=== PATIENT | female | born 1975 | race Caucasian/White ===

== ENCOUNTER 2017-03-10 11:15 | Emergency (ER) | payer SELFPAY ==
[~2017-03-10] VITALS: Ht 175.3 cm; Wt 53.5 kg
[2017-03-10 11:26] VITALS: BP 139/101
[2017-03-10 11:58] LABS: Urine RBC None Seen /hpf (0 - 4)
[2017-03-10 12:20] LABS: Basophils # (auto) 0 uL; Basophils % (auto) 0.8 % (0.0-2.0); CONDITION Y; Eosinophils # (auto) 0.1 uL; Eosinophils % (auto) 1.5 % (0.0-7.0); Hematocrit 37.9 % (36.0-46.0); Lymphocytes # (auto) 1.8 uL; Lymphocytes % (auto) 35.2 % (10.0-50.0); Mean Corpuscular Hemoglobin 34.5 pg (28.0-32.0); Mean Corpuscular Hgb Conc. 34.4 g/dL (32.0-36.0); Mean Corpuscular Volume 100.4 fL (80.0-100.0); Mean Platelet Volume 9.3 fL (7.4-10.4); Monocytes # (auto) 0.3 uL; Monocytes % (auto) 5.7 % (0.0-12.0); Neutrophils # (auto) 2.8 uL; Neutrophils % (auto) 56.8 % (37.0-80.0); Platelet Count (auto) 144 10^3/uL (140-450); Red Cell Distribution Width 13.6 % (11.6-16.0)
[2017-03-10 12:44] LABS: Albumin 4.3 g/dL (3.4-5.0); Bilirubin, Total 0.4 mg/dL (0.2-1.0); Calcium 8.5 mg/dL (8.5-10.1); Potassium 3.8 mmol/L (3.5-5.1); Total Protein 7.6 g/dL (6.4-8.2)
[2017-03-10 13:18] LABS: Urine Bilirubin Negative (Negative); Urine Blood Negative /uL (Negative); Urine Color Yellow (Yellow); Urine Glucose Normal (Normal); Urine Ketone Negative (Negative); Urine Nitrite Negative (Negative); Urine Urobilinogen Normal (Negative)
[2017-03-10 13:19] LABS: Urine Squamous Epithelial Cell FEW /hpf (<5)
== END 2017-03-10 15:15 | disposition left against medical advice (07) ==
LOC: ER 11:15
DX: R20.0 Anesthesia of skin (principal)
CPT/HCPCS: 36415; 70450; 80053; 81001; 81025; 85025